=== PATIENT | female | born 1975 | race Asian ===

== ENCOUNTER → 2021-11-11 | Outpatient (CLI) | payer MEDICAID | LOC: COL.RAD 13:57 | DX: M51.36 Other intervertebral disc degeneration, lumbar region (principal); M48.061 Spinal stenosis, lumbar region without neurogenic claudication ==

== ENCOUNTER 2021-12-25 09:45 | Outpatient (RCR) | payer MEDICAID | END 2021-12-30 | disposition home or self-care (01) | LOC: WSPT | DX: M25.511 Pain in right shoulder (principal) ==

== ENCOUNTER 2022-01-24 11:15 | Outpatient (RCR) | payer MEDICAID | END 2022-01-27 | disposition home or self-care (01) | LOC: WSPT | DX: M25.511 Pain in right shoulder (principal) ==

== ENCOUNTER 2022-01-29 14:47 | Outpatient (RCR) | payer MEDICAID | END 2022-02-27 | disposition home or self-care (01) | LOC: WSPT | DX: M25.511 Pain in right shoulder (principal) ==

== ENCOUNTER → 2022-05-09 | Outpatient (CLI) | payer MEDICAID | LOC: COL.RAD 13:53 | DX: R35.0 Frequency of micturition (principal); R10.2 Pelvic and perineal pain; Z87.442 Personal history of urinary calculi ==

== ENCOUNTER → 2022-07-14 | Outpatient (CLI) | payer MEDICAID | LOC: MHCPAIN 10:44 | DX: M47.816 Spondylosis without myelopathy or radiculopathy, lumbar region (principal); M54.50 Low back pain, unspecified; M53.3 Sacrococcygeal disorders, not elsewhere classified | CPT/HCPCS: G0463 ==